=== PATIENT | male | born 1980 | race American Indian/Alaskan Native ===

== ENCOUNTER 2017-01-03 11:53 | Emergency (ER) | payer SELFPAY ==
[2017-01-03] MEDS ORDERED: XYLOCAINE 1%/ EPI 1:100,000 INFILTRATI ONE (13:53)
[2017-01-03] MEDS ORDERED: MOTRIN PO ONE (13:54)
[2017-01-03] MEDS ORDERED: XYLOCAINE 2%/ EPI 1:200,000 INFILTRATI ONE (14:14)
--- NOTE | 2017-01-03 14:22 | Emergency Department Report ---
- General Chief complaint: Skin Rash Stated complaint: BUMP ON BUTT Time Seen by Provider: 01/03/17 13:47 Source: patient Mode of arrival: Ambulatory Limitations: No Limitations - History of Present Illness Initial comments: 36-year-old male past medical history none presents with complaint of left buttock discomfort for 3 days. Patient is awake alert and oriented 3 appears slightly uncomfortable states that sitting is uncomfortable. Denies fevers or chills denies nausea or vomiting denies abdominal pain. Patient is fully lucid and nontoxic appearing and ambulatory. Denies any difficulty defecating. MD complaint: abscess/boil Onset/Timin -: days(s) Location: buttocks (left buttock) Severity: moderate Severity scale (0 -10): 4 Quality: aching Consistency: intermittent Improves with: none Context: none Associated symptoms: denies other symptoms Treatments Prior to Arrival: none - Related Data Previous Rx's Medication Instructions Recorded Last Taken Type Cyclobenzaprine HCl [Flexeril 5mg] 5 mg PO BID #10 tablet 10/08/13 Unknown Rx Naproxen [Naprosyn] 250 mg PO BID #14 tablet 04/28/14 Unknown Rx traMADol [Ultram 50 MG tab] 50 mg PO Q6HR PRN #20 tablet 04/28/14 Unknown Rx Acetaminophen/Codeine [Tylenol 1 tab PO Q6H PRN #6 tab 01/03/17 Unknown Rx /Codeine # 3 tab] Cephalexin [Keflex] 500 mg PO BID #14 capsule 01/03/17 Unknown Rx Ibuprofen [Motrin] 600 mg PO Q8H PRN #30 tablet 01/03/17 Unknown Rx Sulfamethoxazole/Trimethoprim 1 each PO BID #14 tablet 01/03/17 Unknown Rx [Bactrim DS TAB] Allergies Allergy/AdvReac Type Severity Reaction Status Date / Time No Known Allergies Allergy Unverified 10/08/13 19:48 Abscess Boil HPI - HPI Chief Complaint: Skin Rash Stated Complaint: BUMP ON BUTT Time Seen by Provider: 01/03/17 13:47 Home Medications: Previous Rx's Medication Instructions Recorded Last Taken Type Cyclobenzaprine HCl [Flexeril 5mg] 5 mg PO BID #10 tablet 10/08/13 Unknown Rx Naproxen [Naprosyn] 250 mg PO BID #14 tablet 04/28/14 Unknown Rx traMADol [Ultram 50 MG tab] 50 mg PO Q6HR PRN #20 tablet 04/28/14 Unknown Rx Acetaminophen/Codeine [Tylenol 1 tab PO Q6H PRN #6 tab 01/03/17 Unknown Rx /Codeine # 3 tab] Cephalexin [Keflex] 500 mg PO BID #14 capsule 01/03/17 Unknown Rx Ibuprofen [Motrin] 600 mg PO Q8H PRN #30 tablet 01/03/17 Unknown Rx Sulfamethoxazole/Trimethoprim 1 each PO BID #14 tablet 01/03/17 Unknown Rx [Bactrim DS TAB] Allergies/Adverse Reactions: Allergies Allergy/AdvReac Type Severity Reaction Status Date / Time No Known Allergies Allergy Unverified 10/08/13 19:48 ED Review of Systems ROS: Stated complaint: BUMP ON BUTT Other details as noted in HPI Constitutional: denies: chills, fever Eyes: denies: eye pain, eye discharge, vision change ENT: denies: ear pain, throat pain Respiratory: denies: cough, shortness of breath, wheezing Cardiovascular: denies: chest pain, palpitations Endocrine: no symptoms reported Gastrointestinal: denies: abdominal pain, nausea, diarrhea Genitourinary: denies: urgency, dysuria Musculoskeletal: denies: back pain, joint swelling, arthralgia Skin: denies: rash, lesions Neurological: denies: headache, weakness, paresthesias Psychiatric: denies: anxiety, depression Hematological/Lymphatic: denies: easy bleeding, easy bruising ED Past Medical Hx - Past Medical History Previous Medical History?: No - Surgical History Past Surgical History?: No - Social History Smoking Status: Current Every Day Smoker Substance Use Type: None - Medications Home Medications: Home Medications Medication Instructions Recorded Confirmed Last Taken Type Cyclobenzaprine HCl [Flexeril 5mg] 5 mg PO BID #10 tablet 10/08/13 Unknown Rx Naproxen [Naprosyn] 250 mg PO BID #14 tablet 04/28/14 Unknown Rx traMADol [Ultram 50 MG tab] 50 mg PO Q6HR PRN #20 tablet 04/28/14 Unknown Rx Acetaminophen/Codeine [Tylenol 1 tab PO Q6H PRN #6 tab 01/03/17 Unknown Rx /Codeine # 3 tab] Cephalexin [Keflex] 500 mg PO BID #14 capsule 01/03/17 Unknown Rx Ibuprofen [Motrin] 600 mg PO Q8H PRN #30 tablet 01/03/17 Unknown Rx Sulfamethoxazole/Trimethoprim 1 each PO BID #14 tablet 01/03/17 Unknown Rx [Bactrim DS TAB] ED Physical Exam - General Limitations: No Limitations General appearance: alert, in no apparent distress - Head Head exam: Present: atraumatic, normocephalic - Eye Eye exam: Present: normal appearance, PERRL, EOMI - ENT ENT exam: Present: mucous membranes moist - Neck Neck exam: Present: normal inspection - Respiratory Respiratory exam: Present: normal lung sounds bilaterally. Absent: respiratory distress - Cardiovascular Cardiovascular Exam: Present: regular rate, normal rhythm. Absent: systolic murmur, diastolic murmur, rubs, gallop - GI/Abdominal GI/Abdominal exam: Present: soft, normal bowel sounds - Rectal Rectal exam: Present: deferred, normal rectal tone (no internal pain on RACIEL, no intenral fluctuance), mass (pilonidal buttock abscess on left buttock near perianal region but not on perianal rim) - Extremities Exam Extremities exam: Present: normal inspection - Back Exam Back exam: Present: normal inspection - Neurological Exam Neurological exam: Present: alert, oriented X3 - Psychiatric Psychiatric exam: Present: normal affect, normal mood - Skin Skin exam: Present: warm, dry, intact, normal color. Absent: rash ED Course Vital Signs 01/03/17 12:03 Temperature 98 F Pulse Rate 84 Respiratory 20 Rate Blood Pressure 151/87 O2 Sat by Pulse 100 Oximetry ED Medical Decision Making - Medical Decision Making A/P: Pilonidal/buttock abscess 1-abscess incised and drained, wound culture sent, moderate amount of purulent drainage. 3 inches of 1/4 inch iodoform 2-Bactrim and Keflex twice a day 7 days 3-Motrin when necessary for pain 4-wound check in 48 hours. I advised patient to return to the ED for any abdominal pain fevers chills nausea or vomiting. Patient does not currently have the symptoms. Critical care attestation.: If time is entered above; I have spent that time in minutes in the direct care of this critically ill patient, excluding procedure time. ED Disposition Clinical Impression: Abscess of buttock, left Disposition: DC-01 TO HOME OR SELFCARE Is pt being admited?: No Does the pt Need Aspirin: No Condition: Stable Instructions: Abscess Incision and Drainage (ED), Abscess (ED) Additional Instructions: Wound check in the ED in 48 hours Prescriptions: Acetaminophen/Codeine [Tylenol /Codeine # 3 tab] 1 tab PO Q6H PRN #6 tab PRN Reason: Pain Cephalexin [Keflex] 500 mg PO BID #14 capsule Ibuprofen [Motrin] 600 mg PO Q8H PRN #30 tablet PRN Reason: Pain Sulfamethoxazole/Trimethoprim [Bactrim DS TAB] 1 each PO BID #14 tablet Referrals: [facility] [Outside] - 3-5 Days [facility] [place] [Outside] - 3-5 Days Forms: Work/School Release Form(ED) Time of Disposition: 15:38
[2017-01-03] MEDS ORDERED: PEPCID PO ONE (15:42)
[2017-01-03 15:48] VITALS: BP 138/76
== END 2017-01-03 15:48 | disposition home or self-care (01) ==
LOC: ED 11:53
DX: L02.31 Cutaneous abscess of buttock (principal); F17.200 Nicotine dependence, unspecified, uncomplicated
CPT/HCPCS: 87116; 99282; 99283